=== PATIENT | male | born 1940 | race Caucasian/White ===

== ENCOUNTER 2017-03-03 21:16 | Emergency (ER) | payer MEDICARE ==
[2017-03-03] MEDS ORDERED: IBUPROFEN 600 MG TABLET PO ONE (21:27)
[2017-03-03] MEDS ORDERED: IBUPROFEN 600 MG TABLET ONE (21:34)
--- NOTE | 2017-03-03 21:37 | ERNOTE ---
<Evelyn Terry - Last Filed: 03/03/17 22:00> Date of Service: 03/03/17 Time Seen by Provider: 03/03/17 21:20 Stated Complaint: FLU Presenting Symptoms:: cough Source: patient Exam Limitations: no limitations Immunizations: IMMUNIZATION HX Immunizations Up to Date Yes History of Influenza Vaccine No Hx Pneumococcal Vaccination No Allergies/Adverse Reactions: Allergies No Known Allergies Allergy (Verified 12/15/12 18:55) Home Medications: HOME MEDICATIONS Aspirin [Aspirin Chewable] 1 tab PO DAILY 12/15/12 [Last Taken Unknown] Multivitamin [Multi Vitamin Daily] 1 tab PO DAILY 12/15/12 [Last Taken Unknown] Glimepiride [Amaryl] 4 mg PO DAILY 10/03/13 [Last Taken Unknown] Losartan Potassium [Cozaar] 50 mg PO DAILY 10/03/13 [Last Taken Unknown] Gabapentin 100 mg PO TID 11/21/15 [Last Taken Unknown] Oseltamivir Phosphate 75 mg PO BID #10 capsule 03/03/17 [Last Taken Unknown] - History of Present Ilness Narrative: Pt. comes in with c/o headache, cough, fever, fatigue, malaise, for two days. Pt. states that he took Ibuprofen with some relief in symptoms at 0800 this morning but symptoms did not resolve completely. Pt. states that his three granddaughters got influenza A this week and he has been exposed to them. Pt. denies any SOB, CP, NVD, rhinorrhea, sore throat. Pt. states that he received an influenza vaccine this year. Review of Systems - Review of Systems Constitutional: Present: fever, chills, fatigue, malaise. Absent: weakness EYE: Present: no symptoms reported ENT: Present: no symptoms reported. Absent: ear pain, nose pain, nose congestion, sore throat Respiratory: Present: cough. Absent: shortness of breath, wheezing Cardiology: Present: no symptoms reported. Absent: chest pain, palpitations, edema Gastrointestinal/Abdominal: Present: no symptoms reported. Absent: nausea, vomiting, diarrhea Genitourinary: Present: no symptoms reported. Absent: frequency, decreased urinary output Musculoskeletal: Present: no symptoms reported. Absent: back pain, joint pain Skin: Present: no symptoms reported. Absent: rash, change in color, change in hair/nails Neurological: Present: headache. Absent: dizziness/light-headedness, numbness, tingling All Other Systems: All systems neg except as marked - Patient's Past Medical History Patient History - Medical: Diabetes Type 2 Patient History - Cardiac/Respiratory: Hypertension, Other Patient History - Cancer: No Hx of Cancer Patient History - Surgical Procedures: Appendectomy Patient History - Other: None - Social History Living Situations: spouse Abuse History: No History of abuse Psych History: No pertinent hx Smoking Status: Former smoker Have you smoked in the past 12 months: No Do you dip or chew tobacco: No Alcohol Use: none Drug Use: none - Immunizations Immunizations Up to Date: Yes Hx Pneumococcal Vaccination: No History of Influenza Vaccine: No Physical Exam - Physical Exam General Appearance: Present: wd/wn, alert, no apparent distress Head Exam: Present: normal inspection, no evidence of injury Eye Exam: Normal inspection: bilateral Ears, Nose, Throat: Present: normal ENT inspection, normal pharynx. Absent: abnormal TM (R), abnormal TM (L), nasal congestion, pharyngeal erythema Neck: Present: normal inspection, nontender, supple, full range of motion. Absent: lymphadenopathy (R), lymphadenopathy (L) Respiratory: Present: no respiratory distress, normal breath sounds, no accessory muscle use, chest nontender, lungs clear. 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 - Vital Signs Patient's Vital Signs:: I have reviewed the patient's vital signs. Vital Signs: Vital Signs 03/03/17 21:22 Temperature 38.4 C H Pulse Rate 101 H Respiratory 16 Rate Blood Pressure 161/71 O2 Sat by Pulse 91 Oximetry Departure Clinical Impression: Influenza A - Departure Disposition: Home self-care Condition: Good Instructions: Influenza, Adult, [id number] Additional Instructions: Please follow up with primary provider in 2-3 days. Prescriptions: Oseltamivir Phosphate 75 mg PO BID #10 capsule <Keagan Bassett - Last Filed: 03/03/17 22:33> Immunizations: IMMUNIZATION HX Immunizations Up to Date Yes History of Influenza Vaccine No Hx Pneumococcal Vaccination No ED Progress - Vital Signs Vital Signs: Vital Signs 03/03/17 21:22 Temperature 38.4 C H Pulse Rate 101 H Respiratory 16 Rate Blood Pressure 161/71 O2 Sat by Pulse 91 Oximetry - X-Ray X-Ray #1 X-Ray: chest - patient's x-ray demonstrates no acute infiltrates. Questionable peribronchiolar cuffing consistent with mild inflammation Interpretation: Interp. by me
[2017-03-03] MEDS ORDERED: OSELTAMIVIR PHOSPHATE 75 MG CAPSULE PO ONE ×2 (22:00→22:01)
[2017-03-03 22:35] VITALS: BP 158/73
== END 2017-03-03 22:41 | disposition home or self-care (01) ==
LOC: ER 21:16
DX: E11.9 Type 2 diabetes mellitus without complications; I10 Essential (primary) hypertension; J10.1 Influenza due to other identified influenza virus with other respiratory manifestations; Z87.891 Personal history of nicotine dependence

== ENCOUNTER 2019-01-10 14:42 | Observation (INO) ==
--- NOTE | 2019-01-10 15:42 | ERNOTE ---
GI Bleeding/Rectal Pain ER Date of Service: 01/10/19 Presenting Symptoms: rectal bleeding Time Seen by Provider: 01/10/19 14:57 Source: patient, RN notes reviewed Exam Limitations: no limitations Immunizations: IMMUNIZATION HX Immunizations Up to Date Yes History of Influenza Vaccine No Hx Pneumococcal Vaccination No Allergies/Adverse Reactions: Allergies No Known Allergies Allergy (Verified 01/10/19 14:52) Home Medications: HOME MEDICATIONS Aspirin [Aspirin Chewable] 1 tab PO DAILY 12/15/12 [Last Taken Unknown] Multivitamin [Multi Vitamin Daily] 1 tab PO DAILY 12/15/12 [Last Taken Unknown] Glimepiride [Amaryl] 4 mg PO DAILY 10/03/13 [Last Taken Unknown] Losartan Potassium [Cozaar] 50 mg PO DAILY 10/03/13 [Last Taken Unknown] Gabapentin 100 mg PO TID 11/21/15 [Last Taken Unknown] Insulin Glargine,Hum.rec.anlog [Lantus] 25 units SC HS 01/10/19 [Last Taken Unknown] Narrative: Andi is a 78 year old male who presents to the ED with bloody stools. He was initially passing stool with some dark red blood this morning but is now passing only blood. He denies abdominal pain but reports feeling bloated. He is unsure if he has ever had a colonoscopy. He has no history of GI bleeding in the past. Date (Duration): 01/10/19 Time (Timing): 06:00 Nausea/Vomiting: Present: none Abdominal Pain: Present: none Rectal Bleeding: Present: without stool Associated Symptoms: Denies: back pain, light headedness, rectal pain Prior Treament: Reports: recently seen - by PCP for routine appointment. Denies: similar symptoms before Review of Systems - Review of Systems Constitutional: Absent: recent illness, fever, chills, malaise EYE: Present: no symptoms reported ENT: Present: no symptoms reported Respiratory: Absent: shortness of breath, cough Cardiology: Absent: chest pain, syncope Gastrointestinal/Abdominal: Absent: nausea, vomiting, abdominal pain Genitourinary: Absent: dysuria, decreased urinary output Musculoskeletal: Absent: muscle pain, joint pain Skin: Absent: rash, lesions Neurological: Absent: headache, dizziness/light-headedness Endocrine: Present: no symptoms reported Hematologic/Lymphatic: Absent: easy bruising, easy bleeding Psych: Present: no symptoms reported Medical History (Last Reviewed 01/10/19 @ 18:30 by Nay Arnold NP) Appendicitis Diabetes mellitus Hypertension Surgical History: Surgical History (Last Reviewed 01/10/19 @ 18:31 by Nay Arnold NP) H/O heart artery stent H/O shoulder surgery History of ankle surgery Hx of appendectomy S/P TURP (transurethral resection of prostate) Family History: Family History (Last Reviewed 01/10/19 @ 18:31 by Nay Arnold NP) Father Myocardial infarction Social History: (Last Reviewed 01/10/19 @ 18:31 by Nay Arnold NP) Tobacco: Smoking Status: Former smoker Alcohol: alcohol intake: former Substance Use: substance use type: does not use Physical Exam - Physical Exam General Appearance: Present: wd/wn, alert, no apparent distress, cheerful Head Exam: Present: normal inspection Eye Exam: Normal inspection: bilateral Neck: Present: normal inspection, nontender, supple, full range of motion Respiratory: Present: no respiratory distress, normal breath sounds, no accessory muscle use, lungs clear Cardiovascular/Chest: Present: regular rate, rhythm, no murmur, normal peripheral pulses Gastrointestinal/Abdominal: Present: normal bowel sounds, nontender, soft, distended - appears bloated Rectal Exam: Present: nontender, normal rectal tone, hemorrhoids, other - Juan blood present on glove. Absent: heme negative stool, mass Back Exam: Present: normal inspection, normal range of motion Extremity Exam: Present: normal inspection, normal range of motion, no edema Neurological Exam: Present: alert, oriented, normal mood/affect, no motor/sensory deficits Skin Exam: Present: normal color, warm/dry Progress - Results and Orders Patient's Lab Results:: I have reviewed the patient's lab results. - Vital Signs Patient's Vital Signs:: I have reviewed the patient's vital signs. Vital Signs: Vital Signs 01/10/19 14:52 Temperature 36.3 C Pulse Rate 80 Respiratory Rate 16 Blood Pressure 134/74 O2 Sat by Pulse Oximetry 98 - X-Ray X-Ray #1 X-Ray: abdomen Interpretation: Reviewed by me - CT/Ultrasound CT/Ultrasound Narrative: CT abdomen/pelvis is without acute findings per night rad prelim report - Progress/Reassessment Chief Complaint: Rectal Bleeding Progress:: Unchanged Plan - Plan Plan: The patient has had several episodes of passing blood while in the department. He has had 3 or [address] that are just blood, the last of which he reports is not as dark red. He continues to deny abdominal pain. His vital signs are stable and he has a Hgb of 12.4. Dr. Gonsalez was contacted and the patient will be admitted to observation status on Med/Surg. The case was also discussed with Dr. Davis. The patient was informed that he is NPO. Departure Clinical Impression: GI bleed Qualifiers: GI bleed type/associated pathology: unspecified gastrointestinal hemorrhage type Qualified Code(s): K92.2 - Gastrointestinal hemorrhage, unspecified - Departure Disposition: Still a patient Condition: Stable
[2019-01-10 15:59] LABS: Hematocrit 36.1 % (42.0-52.0); Hemoglobin 12.4 gm/dL (13.5-18.0); Mean Cell Volume 89.4 fl (78-100); Mean Corpuscular Hemoglobin 30.7 pg (27-31); Mean Corpuscular Hgb Conc 34.3 g/dl (32-36); Mean Platelet Volume 9.4 fl (8-11.3); Neutrophil # 8.2 K/mm3 (1.3-6.0); Neutrophil % 78.7 % (42-75.0); Platelet Count 358 K/mm3 (150-450); Red Blood Count 4.04 M/mm3 (4.7-6.0); Red Cell Distribution Width 12.3 % (11.5-14.0); White Blood Count 10.5 K/mm3 (4.0-10.5)
[2019-01-10 16:08] LABS: Prothrombin Time (Patient) 10.4 Seconds (9.1-10.7)
[2019-01-10 16:09] LABS: INR 1.05 INR (0.92-1.08); Partial Thrombolplastin Time 24.3 Seconds (24-32)
[2019-01-10 16:13] LABS: Albumin * 3.3 gm/dl (3.4-5.0); Anion Gap 14.6 mmol/L (6.8-13.8); BUN/Creatinine Ratio 16.1 (9.0-21.6); Bilirubin, Total 0.3 mg/dL (0.0-1.1); Ca. Corrected For Albumin 8.4 mg/dL (8.4-10.2); Calcium * 8.2 mg/dL (7.9-10.9); Carbon Dioxide 24.2 mmol/L (24-32.6); Potassium 4.8 mmol/L (3.4-4.6); Total Protein 6.5 gm/dL (6.2-8.2)
[2019-01-10] MEDS ORDERED: DIATRIZOATE MEGLUMINE, SODIUM 30 ML BTL PO ONE (16:46)
[2019-01-10] MEDS ORDERED: DIATRIZOATE MEGLUMINE, SODIUM 30 ML BTL ONE (16:47)
[2019-01-10] MEDS ORDERED: ACETAMINOPHEN 325 MG TABLET PO PRN (20:22)
[2019-01-10] MEDS ORDERED: NORMAL SALINE 1,000 ML IV ONE (20:24)
[2019-01-10 20:45] LABS: Hematocrit 32.9 % (42.0-52.0); Hemoglobin 11.5 gm/dL (13.5-18.0)
--- NOTE | 2019-01-10 20:55 | HP ---
Chief Complaint - Chief Complaint Date of Service: 01/10/19 Time of Service: 20:44 Chief Complaint: I have rectal bleeding since this morning History of Present Illness: 78-year-old male with past medical history of coronary artery disease, type 2 diabetes, obesity, diabetic neuropathy, was evaluated in the ER due to ongoing painless rectal bleeding that started this morning. Patient reports that he had been in his usual state of health and had an uneventful morning but sometime this afternoon he went to the bathroom to move his bowels and noticed blood mixed in his stools. Shortly after that he started passing dolores red blo od that has not yet stopped. Patient had multiple bloody bowel movements while in our ER the last 1 occurring less than 1 hour ago. At the moment patient denies any pain and only occasional mild bloating. He reports having only mild rectal bleeding in the past but never sought medical help for it. He says this is the worst one he had and never had such a significant amounts of blood before. He denies ever having a colonoscopy. Medical History (Last Reviewed 01/10/19 @ 18:30 by Nay Arnold NP) Appendicitis Diabetes mellitus Hypertension Surgical History: Surgical History (Last Reviewed 01/10/19 @ 18:31 by Nay Arnold NP) H/O heart artery stent H/O shoulder surgery History of ankle surgery Hx of appendectomy S/P TURP (transurethral resection of prostate) Family History: Family History (Last Reviewed 01/10/19 @ 18:31 by Nay Arnold NP) Father Myocardial infarction Social History: (Last Reviewed 01/10/19 @ 20:25 by Harsh Miner RN) Tobacco: Smoking Status: Former smoker Alcohol: alcohol intake: former Substance Use: substance use type: does not use Peds Patient Hx - Developmental: No Pertinent Hx Peds Patient Hx - Medical: No Pertinent Hx Peds Patient Hx - Cardiac/Respiratory: No Pertinent Hx Peds Patient Hx - Surgical: Appendectomy Patient History - Cancer: No Hx of Cancer Review Of Systems (GEN) - Review of Systems Generalized/Overall Review: Present: No Symptoms Reported EENTM: Present: No Symptoms Reported Respiratory: Present: No Symptoms Reported Cardiac: Present: No Symptoms Reported Abdominal: Present: Bright blood from rectum, Other - Mild bloating Genitourinary: Present: No Symptoms Reported Musculoskeletal: Present: No Symptoms Reported Neurological: Present: No Symptoms Reported Skin: Present: No Symptoms Reported Endocrine: Present: No Symptoms Reported Immunizations: IMMUNIZATION HX Immunizations Up to Date Yes History of Influenza Vaccine No Hx Pneumococcal Vaccination No Allergies/Adverse Reactions: Allergies Allergy/AdvReac Type Severity Reaction Status Date / Time No Known Allergies Allergy Verified 01/10/19 20:25 Home Medications: HOME MEDICATIONS Aspirin [Aspirin Chewable] 1 tab PO DAILY 12/15/12 [Last Taken Unknown] Multivitamin [Multi Vitamin Daily] 1 tab PO DAILY 12/15/12 [Last Taken Unknown] Glimepiride [Amaryl] 4 mg PO DAILY 10/03/13 [Last Taken Unknown] Losartan Potassium [Cozaar] 50 mg PO DAILY 10/03/13 [Last Taken Unknown] Gabapentin 100 mg PO TID 11/21/15 [Last Taken Unknown] Insulin Glargine,Hum.rec.anlog [Lantus] 25 units SC HS 01/10/19 [Last Taken Unknown] Exam - Exam Vital Signs: Vital Signs - Last Taken Temp 36.3 C 01/10/19 14:52 Pulse 67 01/10/19 20:10 Resp 20 01/10/19 20:10 BP 106/44 01/10/19 20:10 Pulse Ox 96 01/10/19 20:10 Constitutional: Present: Alert, Oriented x3, Cooperative, Well developed, Well nourished, No distress ENT Exam: Present: normal ENT inspection, hearing grossly normal, pharynx nor mal, TMs normal Eye Exam: bilateral eye: normal inspection, PERRL, EOMI Neck: Present: non-tender, full range of motion, supple, normal inspection, tr achea midline Back Exam: Present: normal inspection, no CVA tenderness, no vertebral tenderness Breasts: Present: Exam deferred, Nontender Respiratory: Present: chest non-tender, lungs clear, normal breath sounds, no respiratory distress, no accessory muscle use Cardiovascular/Chest: Present: normal peripheral pulses, regular rate, rhythm, no chest tenderness, no edema, no gallop, no JVD, no murmur, no rub Peripheral Pulses: carotid (R): 3+, carotid (L): 3+, femoral (R): 3+, femoral (L): 3+, dorsalis-pedis (R): 3+, dorsalis-pedis (L): 3+ Abdomen: Present: Normal bowel sounds, soft, nontender, nondistended, no rebound tenderness, no hepatospenomegaly, no masses, obese /Rectal: Present: Exam deferred Extremity: Present: normal range of motion, non-tender, normal inspection, no pedal edema, no calf tenderness, normal capillary refill, pelvis stable Skin Exam: Present: normal color, warm/dry, no cyanosis Lymphatic: Present: no adenopathy Neurologic: Present: 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 II-XII nml as tested, normal cerebellar test, no motor/sensory deficits, alert, oriented x 3 Appearance: Present: appropriate appearance, appropriate insight, neat, no memory impairment Eye contact: Present: cooperative, good eye contact, normal speech Thoughts: Present: normal thought pattern, no apparent hallucination Diagnostic Studies: Abnormal Lab Results 01/10/19 01/10/19 Range/Units 15:50 15:50 RBC 4.04 L (4.7-6.0) M/mm3 Hgb 12.4 L (13.5-18.0) gm/dL Hct 36.1 L (42.0-52.0) % Neutrophils % 78.7 H (42-75.0) % Lymphocytes % 12.4 L (20-51) % Neutrophils # 8.2 H (1.3-6.0) K/mm3 Lymphocytes # 1.30 L (1.5-3.5) k/mm3 Potassium 4.8 H (3.4-4.6) mmol/L Anion Gap 14.6 H (6.8-13.8) mmol/L Est GFR (Non-Af Amer) 54 L (60-130) mL/min Random Glucose 273 H (70-110) mg/dL ALT 16 L (19-67) U/L Albumin 3.3 L (3.4-5.0) gm/dl Laboratory Results WBC 10.5 K/mm3 (4.0-10.5) 01/10/19 15:50 RBC 4.04 M/mm3 (4.7-6.0) L 01/10/19 15:50 Hgb 12.4 gm/dL (13.5-18.0) L 01/10/19 15:50 Hct 36.1 % (42.0-52.0) L 01/10/19 15:50 MCV 89.4 fl (78-100) 01/10/19 15:50 MCH 30.7 pg (27-31) 01/10/19 15:50 MCHC 34.3 g/dl (32-36) 01/10/19 15:50 RDW 12.3 % (11.5-14.0) 01/10/19 15:50 Plt Count 358 K/mm3 (150-450) 01/10/19 15:50 MPV 9.4 fl (8-11.3) 01/10/19 15:50 Immature Gran % (Auto) 0.30 % (0.001-0.429) 01/10/19 15:50 Immature Gran # (Auto) 0.03 K/mm3 (0.000-0.0310) 01/10/19 15:50 Neutrophils % 78.7 % (42-75.0) H 01/10/19 15:50 Lymphocytes % 12.4 % (20-51) L 01/10/19 15:50 Monocytes % 6.3 % (0.0-9) 01/10/19 15:50 Eosinophils % 1.7 % (0.0-3.0) 01/10/19 15:50 Basophils % 0.6 % (0.0-1.0) 01/10/19 15:50 Nucleated RBC % 0.0 k/mm3 (0-1) 01/10/19 15:50 Neutrophils # 8.2 K/mm3 (1.3-6.0) H 01/10/19 15:50 Lymphocytes # 1.30 k/mm3 (1.5-3.5) L 01/10/19 15:50 Monocytes # 0.7 k/mm3 (0.0-1.0) 01/10/19 15:50 Eosinophils # 0.2 k/mm3 (0.0-0.7) 01/10/19 15:50 Absolute Basophils 0.1 k/mm3 (0.0-0.1) 01/10/19 15:50 PT 10.4 Seconds (9.1-10.7) 01/10/19 15:50 INR (Anticoag Therapy) 1.05 INR (0.92-1.08) 01/10/19 15:50 PTT ([place]) 24.3 Seconds (24-32) 01/10/19 15:50 Sodium 134 mmol/L (132-142) 01/10/19 15:50 Plasma Sodium 137 mmol/L (130-142) 01/10/19 15:50 Potassium 4.8 mmol/L (3.4-4.6) H 01/10/19 15:50 Chloride 100 mmol/L (97-106) 01/10/19 15:50 Carbon Dioxide 24.2 mmol/L (24-32.6) 01/10/19 15:50 Anion Gap 14.6 mmol/L (6.8-13.8) H 01/10/19 15:50 BUN 22 mg/dL (6-23) 01/10/19 15:50 Creatinine 1.37 mg/dL (0.4-1.4) 01/10/19 15:50 Est GFR (Non-Af Amer) 54 mL/min (60-130) L 01/10/19 15:50 BUN/Creatinine Ratio 16.1 (9.0-21.6) 01/10/19 15:50 Random Glucose 273 mg/dL (70-110) H 01/10/19 15:50 Calcium 8.2 mg/dL (7.9-10.9) 01/10/19 15:50 Calcium Adj for Albumin 8.4 mg/dL (8.4-10.2) 01/10/19 15:50 Total Bilirubin 0.3 mg/dL (0.0-1.1) 01/10/19 15:50 AST 15 U/L (0-48) 01/10/19 15:50 ALT 16 U/L (19-67) L 01/10/19 15:50 Alkaline Phosphatase 72 U/L (50-170) 01/10/19 15:50 Total Protein 6.5 gm/dL (6.2-8.2) 01/10/19 15:50 Albumin 3.3 gm/dl (3.4-5.0) L 01/10/19 15:50 Stool Occult Blood Negative 01/10/19 Unknown Blood Type A Positive 01/10/19 15:50 Antibody Screen Negative 01/10/19 15:50 Assessment/Plan - Narrative Narrative: Patient was evaluated and medical chart was reviewed and decision to admit to [facility] for observation for lower GI bleeding was made. Patient had a bloody bowel movement of bright red blood an hour ago while in the ER and before taken to the floor but does not show any signs of ongoing bleeding at the moment. He denies any abdominal pain and exam of the abdomen was negative for any tenderness or distention, he is only complaint is occasional bloating. Hemoglobin done while in the ER was 12, will monitor him with serial H&H every 6 hours to evaluate hemoglobin. It was explained to patient that if the hemoglobin drops to a dangerously low level, he might need blood transfusion. He was in agreement with this possibility and has no objections. Patient will be administered IV Protonix every 12 hours while on the floor. All p.o. meds have been held and patient was placed n.p.o. Currently he maintained stable vitals and denies any other complaints. General surgeon [employer] has been notified, we will follow up with her recommendations. - Assessment/Plan (1) Lower GI bleeding Problem: Acute (2) Diabetes mellitus type 2 in obese Problem: Acute
[2019-01-10] MEDS ORDERED: INSULIN GLARGINE,HUM.REC.ANLOG 100 UNITS/ML VIAL SC SCH (21:00)
[2019-01-10] MEDS: INSULIN REGULAR, HUMAN 100 UNITS/ML VIAL SC SCH (21:36)
[2019-01-10] MEDS: PANTOPRAZOLE SODIUM 40 MG in NORMAL SALINE 100 ML IV SCH (22:20)
[2019-01-11 03:01] LABS: Hematocrit 28.9 % (42.0-52.0); Hemoglobin 9.9 gm/dL (13.5-18.0)
[2019-01-11 07:18] LABS: Hematocrit 32.1 % (42.0-52.0); Hemoglobin 11.1 gm/dL (13.5-18.0)
[2019-01-11] MEDS: INSULIN REGULAR, HUMAN 100 UNITS/ML VIAL SC SCH (07:37)
[2019-01-11 07:42] VITALS: BP 143/57
[2019-01-11] MEDS: PANTOPRAZOLE SODIUM 40 MG in NORMAL SALINE 100 ML IV SCH (09:02)
--- NOTE | 2019-01-11 10:14 | PN ---
Objective Objective Narrative: 78-year-old male admitted for lower GI bleeding that started yesterday afternoon was evaluated at bedside and was found to be afebrile but in mild distress and uncomfortable due to abdominal distention and urinary bladder distention due to urinary retention. Patient reports that ever since he was given contrast for his abdominal CT to look for the etiology of his lower GI bleed he has been unable to void and has become extremely uncomfortable. Patient has an extensive and complicated urologic history that has required audible TURPs and at one time he transferred to the [facility] for higher level of care. Patient's family member relates that whenever he is hospitalized this happens when he receives treatment. As for his lower GI bleed it appears to have improved and actually has slowed down, the last episode was earlier this morning which she reports was less in quantity than before. Serial H&H also demonstrate stabilized hemoglobin in fact his hemoglobin has increased to 11. Given the patient's urinary symptoms and the fact that he is increasingly more uncomfortable, [facility] was called and the urologist on- call Dr. Osuna was briefed on the case and recommended immediate transfer to their facility for intervention. Currently the patient maintained stable vitals and is ambulating without any issues his only complaint is lower abdominal and pelvic dysfunction due to the bladder distention. Transfer process was initiated and the patient and his family member initially agreed for the patient to be transferred in ambulance but has since signed a AMA and said that they will drive to [facility] instead. - Review of Systems Generalized/Overall Review: Reports: No Symptoms Reported EENTM: Reports: No Symptoms Reported Respiratory: Reports: No Symptoms Reported Cardiac: Reports: No Symptoms Reported Abdominal: Reports: Melena, Bright blood from rectum Genitourinary Symptoms: Reports: Retention Musculoskeletal Complaints: Reports: No Symptoms Reported Neurological: Reports: No Symptoms Reported Skin: Reports: No Symptoms Reported Endocrine: Reports: No Symptoms Reported - Vitals Vitals: Last Vital Signs Temp 36.6 C 01/11/19 07:41 Pulse 66 01/11/19 07:41 Resp 16 01/11/19 07:41 BP 143/57 01/11/19 07:41 Pulse Ox 98 01/11/19 07:41 - Abnormal Lab Findings Abnormal Lab Findings: Abnormal Lab Results 01/10/19 01/10/19 01/10/19 Range/Units 15:50 15:50 20:40 RBC 4.04 L (4.7-6.0) M/mm3 Hgb 12.4 L 11.5 L (13.5-18.0) gm/dL Hct 36.1 L 32.9 L (42.0-52.0) % Neutrophils % 78.7 H (42-75.0) % Lymphocytes % 12.4 L (20-51) % Neutrophils # 8.2 H (1.3-6.0) K/mm3 Lymphocytes # 1.30 L (1.5-3.5) k/mm3 Potassium 4.8 H (3.4-4.6) mmol/L Anion Gap 14.6 H (6.8-13.8) mmol/L Est GFR (Non-Af Amer) 54 L (60-130) mL/min Random Glucose 273 H (70-110) mg/dL ALT 16 L (19-67) U/L Albumin 3.3 L (3.4-5.0) gm/dl 01/11/19 01/11/19 Range/Units 02:40 07:13 RBC (4.7-6.0) M/mm3 Hgb 9.9 L 11.1 L (13.5-18.0) gm/dL Hct 28.9 L 32.1 L (42.0-52.0) % Neutrophils % (42-75.0) % Lymphocytes % (20-51) % Neutrophils # (1.3-6.0) K/mm3 Lymphocytes # (1.5-3.5) k/mm3 Potassium (3.4-4.6) mmol/L Anion Gap (6.8-13.8) mmol/L Est GFR (Non-Af Amer) (60-130) mL/min Random Glucose (70-110) mg/dL ALT (19-67) U/L Albumin (3.4-5.0) gm/dl - Exam Constitutional: Present: Alert, Oriented x3, Cooperative, Well developed, Well nourished, Mild distress, Obese ENT Exam: Present: normal ENT inspection, hearing grossly normal, pharynx normal, TMs normal Neck: Present: non-tender, full range of motion, supple, normal inspection, trachea midline Breasts: Present: Exam deferred Respiratory: Present: chest non-tender, lungs clear, normal breath sounds, no respiratory distress, no accessory muscle use Cardiovascular/Chest: Present: normal peripheral pulses, regular rate, rhythm, no chest tenderness, no edema, no gallop, no JVD, no murmur, no rub Abdomen: Present: suprapubic tenderness, distended /Rectal: Present: Other - Suprapubic distention due to bladder retention Extremity: Present: normal range of motion, non-tender, normal inspection, no pedal edema, no calf tenderness, normal capillary refill Skin Exam: Present: normal color, warm/dry, no cyanosis Lymphatic: Present: no adenopathy Neurologic: Present: 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 Richey has been notified that the patient is on his way they stated that they would notify the OR to prep for his intervention. - Problems/Diagnosis (1) Lower GI bleeding Problem: Acute (2) Diabetes mellitus type 2 in obese Problem: Acute (3) Urinary retention Problem: Acute (4) H/O transurethral resection of prostate Problem: Acute
--- NOTE | 2019-01-14 08:41 | DS ---
(1) Lower GI bleeding Problem: Acute (2) Diabetes mellitus type 2 in obese Problem: Acute (3) Urinary retention Problem: Acute (4) H/O transurethral resection of prostate Problem: Acute Date of Discharge:: 01/11/19 Description of Stay: 8-year-old male admitted for painless lower GI bleeding that started on Sunday afternoon [facility] and possibly surgical intervention to treat his lower GI bleed. Once in the MedSurg floor, patient was placed on n.p.o. and was treated with IV hydration and IV Protonix and was followed with serial H&H which eventually stabilized. Patient's bleeding gradually slowed down and he denied any pain or bloating. Surgery was consulted and patient was evaluated and decision to continue monitoring was made. During the hospitalization the patient who has an extensive complicated urological history, develop urinary retention and became uncomfortable due to full bladder. Multiple attempts to catheterize patient failed and urology service at [facility] was contacted and the case was presented to them and they agreed to accept the patient. While preparing discharge documentation and soliciting a ambulance for transfer the patient signed AMA and left. Procedures Performed: none Results and Findings: Lab Pending Results 01/10/19 15:50: PT 10.4, INR (Anticoag Therapy) 1.05, PTT ([place]) 24.3 01/10/19 15:50: Blood Type A Positive, Antibody Screen Negative 01/10/19 15:50: WBC 10.5, RBC 4.04 L, Hgb 12.4 L, Hct 36.1 L, MCV 89.4, MCH 30.7, MCHC 34.3, RDW 12.3, Plt Count 358, MPV 9.4, Immature Gran % (Auto) 0.30, Immature Gran # (Auto) 0.03, Neutrophils % 78.7 H, Lymphocytes % 12.4 L, Monocytes % 6.3, Eosinophils % 1.7, Basophils % 0.6, Nucleated RBC % 0.0, Neutrophils # 8.2 H, Lymphocytes # 1.30 L, Monocytes # 0.7, Eosinophils # 0.2, Absolute Basophils 0.1 01/10/19 15:50: Sodium 134, Plasma Sodium 137, Potassium 4.8 H, Chloride 100, Carbon Dioxide 24.2, Anion Gap 14.6 H, BUN 22, Creatinine 1.37, Est GFR (Non-Af Amer) 54 L, BUN/Creatinine Ratio 16.1, Random Glucose 273 H, Calcium 8.2, Calcium Adj for Albumin 8.4, Total Bilirubin 0.3, AST 15, ALT 16 L, Alkaline Phosphatase 72, Total Protein 6.5, Albumin 3.3 L 01/10/19 20:40: Hgb 11.5 L, Hct 32.9 L 01/10/19 : Stool Occult Blood Negative 01/11/19 02:40: Hgb 9.9 L, Hct 28.9 L 01/11/19 07:13: Hgb 11.1 L, Hct 32.1 L Disposition: Against medical advice Condition: Stable Face to Face Encounter completed per [facility] Guidelines: No Discharge Activity: Activity as tolerated Discharge Diet: NPO Referrals: Jeannette Yeboah, KIM [Primary Care Provider] - Complete Home Medications List: Complete Home Medication List: Aspirin [Aspirin Chewable] 1 tab PO DAILY 12/15/12 Multivitamin [Multi Vitamin Daily] 1 tab PO DAILY 12/15/12 Glimepiride [Amaryl] 4 mg PO DAILY 10/03/13 Losartan Potassium [Cozaar] 50 mg PO DAILY 10/03/13 Gabapentin 100 mg PO TID 11/21/15 Insulin Glargine,Hum.rec.anlog [Lantus] 25 units SC 01/10/19
== END 2019-01-11 10:10 | disposition left against medical advice (07) ==
LOC: MS 14:42 → ER 14:42 → MS 20:10
PROVIDERS: ADMIT Family Medicine; ATTEND Family Medicine
CPT/HCPCS: 36415; 74019; 74020; 74177; 80053; 82272; 85014; 85018; 85025; 85610; 85730; 86850; 96365; 96366; 96372; 99285; G0378; Q9963; Q9967